=== PATIENT | female | born 1990 | race Caucasian/White ===

== ENCOUNTER 2020-06-10 01:38 | Outpatient (CLI) | payer SELFPAY ==
[2020-06-10 21:25] LABS: SARS-CoV-2 RNA PCR Negative
== END 2020-06-10 01:39 | disposition home or self-care (01) ==
LOC: ANHCOVIDDT 01:38
PROVIDERS: Visit Provider Internal Medicine Critical Care Medicine
DX: Z20.828 Contact with and (suspected) exposure to other viral communicable diseases (principal)
CPT/HCPCS: 87635; C9803; U0003

== ENCOUNTER → 2020-09-09 00:33 | Outpatient (CLI) | payer OTHER, SELFPAY ==
[2020-09-09 17:47] LABS: SARS-CoV-2 RNA PCR Negative
== END ==
PROVIDERS: Visit Provider Internal Medicine Critical Care Medicine
DX: Z01.812 Encounter for preprocedural laboratory examination (principal); Z20.822 Contact with and (suspected) exposure to COVID-19
CPT/HCPCS: C9803; U0003; U0005

== ENCOUNTER 2020-09-12 09:05 | Outpatient (CLI) | payer OTHER, SELFPAY ==
--- NOTE | 2020-10-03 11:39 | WPDSLEEPSTUD ---
Sleep Study Date of Study: 08/15/20 Ordering Provider: Sonny Liu, Interpreting Physician: Judith Neville MD Sleep Study Type: Polysomnogram Height: 1.57 m Weight: 67.132 kg Body Mass Index: 27.1 Neck Circumference (inches): 13.5 [place]: 4 Reason for Sleep Study poor quality sleep, never feels fully rested Sleep History Moon Garcia is a 30 year old female with a history of difficulty falling asleep, waking up throughout the sleep period and having excessive daytime sleepiness. She does not awaken from sleep feeling short of breath, nor does she awaken at night with heartburn, belching or coughing. She does not snore and other people do not complain about her snoring. She constantly has trouble sleep with a cold. She does not wake up gasping for breath during the night or have breathing problems at night observed by others. She occasionally sweats excessively at night. She does not notice her heart pounding or beating irregularly night. She frequently falls asleep during the day, involuntarily, but never while driving. She does not have loss of muscle tone with strong emotion. She does not have difficulty at work due to excessive sleepiness. She does not feel paralyzed on waking or falling asleep. She does not have vivid dream like scenes upon awakening or falling asleep. She is never afraid to go to sleep. She occasionally has nightmares, occasionally remembers her dreams, and occasionally has racing thoughts through her mind. She does not feel sad or depressed. She occasionally has anxiety. She does not have muscular tension. She occasionally notices parts of her body jerking and she occasionally kicks at night. She does not have crawling or aching feelings in her legs and does not have any kind of leg pain at night. She does not have morning jaw pain. She does not grind her teeth during sleep. She rarely is bothered by pain during the day. She is not awakened by pain at night. She occasionally wakes up feeling stiff in the morning with sore or achy muscles and pain in the neck and spine. She has headaches, insomnia and daytime fatigue. Her normal bedtime is 12:00 midnight taking an hour to fall asleep typically waking 4 times at night to urinate and then she returns to sleep. It takes her 30 minutes or an hour to return to sleep. She wakes around 12 noon. On weekends she stays awake until 1:00 a.m. and sleeps until 12 noon. She estimates getting 5-6 hours of sleep within the 12 hour sleep episode. 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 On Saturday she goes to bed around 10:00 a.m. and sleeps until 2:00 p.m. She does not nap. a short nap is not refreshing. She is tired for 3 hours or longer after waking. she occasionally has morning headaches. She always has excessive daytime sleepiness. She never awakens feeling refreshed. Habits: Never smoked tobacco. Caffeine 1 cup of coffee on nights that she works. No alcohol or recreational drug PMFSH Past Medical History Medical History (Updated 10/03/20 @ 13:33 by Judith Neville MD) Hypertension Hypothyroidism Partial symptomatic epilepsy with complex partial seizures, not intractable, without status epilepticus Social History Social History (Updated 10/03/20 @ 13:05 by Judith Neville MD) Smoking status: Never smoker Alcohol intake: never Substance use: never Living arrangements: with family Medications Medications: Symbicort 160/4.52 puffs b.i.d. levothyroxine 112 mcg daily hydroxyzine 25 mg 0.5-1 p.r.n. anxiety montelukast 10 mg a day amlodipine 5 mg a day at bedtime fluticasone propionate 50 mcg spray 2 sprays each nostril daily folic acid 2 mg twice a day [place] grass extract with quercetin once daily cephalexin 500 mg 3 times a day albuterol p.r.n. 90 mcg 1-2 puffs for shortness of breath Levetiracetam 500 mg twice a day Sleep Procedure This test was performed using the [employer] multip
[2020-10-03 12:21] VITALS: BMI 27.1
== END 2020-09-12 09:06 | disposition home or self-care (01) ==
LOC: ANHCSM 09:05
PROVIDERS: Visit Provider Family Medicine
DX: G47.26 Circadian rhythm sleep disorder, shift work type (principal); G47.10 Hypersomnia, unspecified; I10 Essential (primary) hypertension; G40.802 Other epilepsy, not intractable, without status epilepticus; Z79.899 Other long term (current) drug therapy
CPT/HCPCS: 95810